=== PATIENT | male | born 1970 | race Caucasian/White ===

== ENCOUNTER 2025-03-23 23:33 | Emergency (ER) | payer BC ==
[~2025-03-23] VITALS: Wt 129.3 kg
[2025-03-24] MEDS ORDERED: IOHEXOL 300 MG/ML 100 ML VIAL IV ONE (00:05)
[2025-03-24 00:38] LABS: BASO # 0.1 10*3/uL (0.0-0.1); BASO % 0.4 % (0.0-1.0); EOS # 0.2 10*3/uL (0.0-0.4); EOS % 1.8 % (1.0-4.0); MEAN CELL VOLUME 85.2 fl (80.0-94.0); MEAN CORPUSCULAR HGB 26.2 pg (27.0-31.0); MEAN PLATELET VOLUME 8.6 fl (9.6-12.3); MONO # 1.3 10*3/uL (0.1-1.0); MONO % 10.3 % (3.0-9.0); NEUT # 8.7 10*3/uL (2.3-7.9); NEUT % 68.9 % (47.0-73.0); NUCLEATED RED BLOOD CELL 0.0 % (0.0-0.0); NUCLEATED RED BLOOD CELL 0.0 10*3/uL (0.0-0.0); PLATELET COUNT AUTOMATED 290 10*3/uL (130-400); RED CELL DISTRI WIDTH 13.1 % (0-14.5)
[2025-03-24 00:56] LABS: BUN 18 mg/dl (9-23)
[2025-03-24] MEDS ORDERED: Ondansetron Hydrochloride 4 MG TAB ONE (00:56)
[2025-03-24] MEDS ORDERED: Acetaminophen/Hydrocodone 5 MG/325 MG TABLET ONE (00:56)
[2025-03-24] MEDS ORDERED: Sulfamethoxazole/Trimethopri 1 TAB TAB ONE (01:00)
[2025-03-24] MEDS ORDERED: Ondansetron Hydrochloride 4 MG TAB SL ONE (23:55)
[2025-03-24] MEDS ORDERED: Sulfamethoxazole/Trimethopri 1 TAB TAB PO ONE (23:55)
[2025-03-24] MEDS ORDERED: Acetaminophen/Hydrocodone 5 MG/325 MG TABLET PO ONE (23:55)
== END 2025-03-24 05:55 | disposition left against medical advice (07) ==
LOC: ED 23:33
PROVIDERS: Internal Medicine
DX: L02.512 Cutaneous abscess of left hand (principal); D72.829 Elevated white blood cell count, unspecified